=== PATIENT | female | born 1955 | race American Indian/Alaskan Native ===

== ENCOUNTER 2018-08-20 09:44 | Day surgery (SDC) | payer MEDICARE ==
[~2018-08-20 09:44] MED LIST: ANCEF/STERILE WATER 2 GM/20 ML IV NR; MARCAINE 0.25% INFILTRATI ONE; XYLOCAINE 1% 20 mL ONE; ZOFRAN IV PRN
[2018-08-20] MEDS ORDERED: LACTATED RINGERS 1,000 ML IV SCH (10:00)
[2018-08-20] MEDS ORDERED: VERSED ONE ×2 (11:27→11:59)
[2018-08-20] MEDS ORDERED: DIPRIVAN 10 MG/ML IV ONE (11:58)
[2018-08-20] MEDS ORDERED: XYLOCAINE MPF 2% ONE (11:59)
[2018-08-20] MEDS ORDERED: SUBLIMAZE ONE ×2 (11:59→13:17)
[2018-08-20] MEDS ORDERED: NACL 0.9% IR ONE (12:29)
[2018-08-20] MEDS ORDERED: DECADRON ONE (12:30)
[2018-08-20] MEDS ORDERED: ZOFRAN ONE (12:31)
--- NOTE | 2018-08-20 13:16 | Short Stay Summary ---
Short Stay Documentation Date of service: 08/20/18 - History H&P: obtained from office - Allergies and Medications Current Medications: Allergies morphine Allergy (Verified 08/15/18 16:48) Rash TAPE Allergy (Uncoded 08/20/18 11:07) Rash, Itching PT STATES THAT PAPER TAPE IS OK. Home Medications Medication Instructions Recorded Confirmed Last Taken Type Glimepiride [Amaryl] 2 mg PO QAM 08/15/18 08/15/18 08/19/18 08:00 History Metformin HCl [Glucophage] 1,000 mg PO BID 08/15/18 08/15/18 08/19/18 08:00 History Rosuvastatin (Nf) [Crestor] 20 mg PO QHS 08/15/18 08/20/18 08/18/18 20:00 History Sitagliptin Phosphate [Januvia] 100 mg PO DAILY 08/15/18 08/15/18 08/19/18 08:00 History HYDROcodone/APAP 5-325 [[place] 1 each PO Q6HR PRN #20 tablet 08/20/18 Unknown Rx 5/325] Active Medications Cefazolin Sodium (Ancef/Sterile Water 2 Gm/20 Ml) 2 gm IV PREOP NR Stop: 08/20/18 23:59 Hydromorphone HCl (Dilaudid) 0.5 mg IV Q10MIN PRN PRN Reason: Pain , Severe (7-10) Stop: 08/20/18 20:00 Lactated Ringer's (Lactated Ringers) 1,000 mls @ 100 mls/hr IV DIRECT LISE Last Admin: 08/20/18 10:50 Dose: 100 mls/hr Documented by: Ondansetron HCl (Zofran) 4 mg IV ONCE PRN PRN Reason: Nausea And Vomiting - Brief post op/procedure progress note Date of procedure: 08/20/18 Pre-op diagnosis: Recurrent right breast of the lower inner quadrant Post-op diagnosis: same Procedure: Right breast mound mass excisional biopsy Anesthesia: GETA Findings: Mass and clip present within radiograph specimen Surgeon: JORDON CHAIDEZ Estimated blood loss: minimal Pathology: list (right breast mound mass excisional biopsy) Specimen disposition: to lab Condition: stable - Disposition Condition at discharge: Good Disposition: [id number] TO HOME OR SELFCARE Short Stay Discharge Plan Activity: other (no heavy lifting) Diet: regular Wound: keep clean and dry (may shower in 48 hours; wear breast binder; no baths), other Follow up with: ROBERTO GOODMAN MD [Primary Care Provider] - 7 Days JORDON CHAIDEZ MD [Staff Physician] - 7 Days Prescriptions: HYDROcodone/APAP 5-325 [[place] 5/325] 1 each PO Q6HR PRN #20 tablet PRN Reason: Pain
--- NOTE | 2018-08-20 13:19 | Operative Report ---
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 Findings: Known right breast mound cancer mass at the 3/4:00 position 8 cm from the nipple-recurrent breast cancer Complications: None Drains: None Estimated blood loss: Minimal Disposition: PACU in good condition Indication for operative procedure: This is an 62-year-old lady with newly diagnosed right breast cancer of right breast mound. 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 She underwent a bilateral mastectomy with immediate TRAM complicated with infection with later take down and bilateral implants placed. Recent findings of right breast mound mass with biopsy performed and findings of IDCA with lobular featers ER/MS positive anad Ki-67 100%. Recent PET with no metastatic diease but findings of mesentary lymphadenopathy and close followup study recommended. Tumor board recommenda tions yesterday with further workup and will obtain CT abd/pelvis in 2 weeks. Patient understands the role of possible adjuvant XRT and chemotherapy that will be determined by final pathology. Ptient wished to proceed with the above procedure. The patient was procedure in detail: The patient was taken to the operating room and was laid supine. General anesthesia was administered. The right breast mound breast cancer mass was palpable at the 3/4:00 position 8 cm from the nipple. Ultrasound was used as well to tori the area of incision. The right breast was prepped and draped in the normal sterile operative fashion. Timeout was performed. A lower inner quadrant incision was made with a 15 blade knife with dissection taken down to the subcutaneous tissues. First began with raising of superior flap with dissection taken down to pectoralis muslce followed by raising of inferior, lateral and medial flaps with dissection taken down to pectoralis muscle. The area of concern was then removed posteriorly from the pectoralis muscle with the aid of the Bovie cautery.The specimen was sent to radiology with clip present and then sent to pathology. Hemostasis was then obtained using the Bovie cautery. The breast cavity was irrigated and suctioned. The deep breast tissues were approximated and closed using interrupted 3-0 Vicryl and skin brought together and closed using a running 4-0 Monocryl followed by skin affix. She tolerated surgery very well and was awakened from anesthesia without any complication and transported to PACU in good condition.
[2018-08-20] MEDS: DILAUDID IV PRN ×2 (13:30→13:45)
--- NOTE | 2018-08-20 13:33 | Mammography Report ---
SPECIMEN RADIOGRAPH RIGHT BREAST: 08/20/18 09:44:00 CLINICAL: Surgical excision of a known cancer. FINDINGS: The targeted lesion with a localizer clip is identified within the specimen. IMPRESSION: Excision of the targeted lesion.
--- NOTE | 2018-08-20 14:37 | Anesthesia Day of Surgery ---
Anesthesia Day of Surgery - Day of Surgery Patient Examined: Yes Patient H&P Reviewed: Yes Patient is NPO: Yes
--- NOTE | 2018-08-20 14:38 | Anesthesia Consultation ---
Anesthesia Consult and Med Hx Date of service: 08/20/18 - Airway Anesthetic Teeth Evaluation: Poor ROM Head & Neck: Adequate Mental/Hyoid Distance: Adequate Mallampati Class: Class III Intubation Access Assessment: Possibly Difficult - Pulmonary Exam CTA: Yes - Cardiac Exam Cardiac Exam: RRR - Pre-Operative Health Status ASA Pre-Surgery Classification: ASA3 Proposed Anesthetic Plan: General (tob use, DM) - Pulmonary Hx Smoking: No Hx Sleep Apnea: No (SYEDA PRE SCREEN LOW RISK) - Cardiovascular System Hx Hypertension: No
--- NOTE | 2018-08-20 14:39 | Post Anesthesia Evaluation ---
- Post Anesthesia Evaluation Patient Participated: Yes Airway Patent: Yes Stable Respiratory Function: Yes Nausea/Vomiting: No Temp > 96.8F: Yes Pain Manageable: Yes Adequeate Hydration: Yes Anesthesia Complications: No
[2018-08-20 19:49] VITALS: BP 124/66
== END 2018-08-20 14:55 | disposition home or self-care (01) ==
LOC: OR 09:44
PROVIDERS: ATTEND Surgery
DX: C50.311 Malignant neoplasm of lower-inner quadrant of right female breast (principal); E78.00 Pure hypercholesterolemia, unspecified; E11.9 Type 2 diabetes mellitus without complications; Z79.899 Other long term (current) drug therapy; Z79.84 Long term (current) use of oral hypoglycemic drugs; Z88.5 Allergy status to narcotic agent; Z91.09 Other allergy status, other than to drugs and biological substances; Z90.710 Acquired absence of both cervix and uterus; Z90.13 Acquired absence of bilateral breasts and nipples; Z90.10 Acquired absence of unspecified breast and nipple; Z87.891 Personal history of nicotine dependence; Z98.890 Other specified postprocedural states
CPT/HCPCS: 19120; 76098; 82962; 88307; J0690; J1100; J1170; J2250; J2405; J2704; J3010; J7120